=== PATIENT | male | born 1985 | race Caucasian/White ===

== ENCOUNTER 2017-10-13 17:18 | Emergency (ER) | payer BC ==
--- NOTE | 2017-10-13 17:50 | UC ---
Respiratory Complaint HPI - HPI Summary HPI Summary: 32 year old male presents with complains of cough and congestion. - History of Current Complaint Stated Complaint: CHEST COLD Time Seen by Provider: 10/13/17 17:49 Hx Obtained From: Patient Onset/Duration: Sudden Onset Severity Initially: Moderate Severity Currently: Moderate Aggravating Factors: Deep Breaths Alleviating Factors: Nothing - Allergies/Home Medications Allergies/Adverse Reactions: Allergies Allergy/AdvReac Type Severity Reaction Status Date / Time Cefaclor [From Ceclor] Allergy Intermediate Hives Verified 10/13/17 17:51 Cefprozil [From Cefzil] Allergy Intermediate Hives Verified 10/13/17 17:51 Clarithromycin [From Biaxin] AdvReac Intermediate Nausea And Verified 10/13/17 17:51 Vomiting Home Medications: Home Medications Losartan TAB* [Cozaar TAB*] 50 mg DAILY 10/13/17 [History Confirmed 10/13/17] PMH/Surg Hx/FS Hx/Imm Hx - Surgical History Surgical History: Yes Surgery Procedure, Year, and Place: 2 NOSE. L ACL RECONSTRUCTION - Family History Known Family History: Positive: Cardiac Disease, Hypertension, Diabetes - Social History Alcohol Use: Weekly Alcohol Amount: 2 Substance Use Type: None Smoking Status (MU): Never Smoked Tobacco Type: Smokeless Tobacco Amount Used/How Often: OCCASSIONALLY Length of Time of Smoking/Using Tobacco: ON AND OFF FOR LAST 10 YRS. - Immunization History Most Recent Influenza Vaccination: NOT THIS SEASON Most Recent Tetanus Shot: 2007 Review of Systems Constitutional: Negative Skin: Negative Eyes: Negative ENT: Negative Respiratory: Cough Cardiovascular: Negative Gastrointestinal: Negative Genitourinary: Negative Motor: Negative Neurovascular: Negative Musculoskeletal: Negative Neurological: Negative Psychological: Negative All Other Systems Reviewed And Are Negative: Yes Physical Exam Triage Information Reviewed: Yes Vital Signs Reviewed: Yes Eye Exam: Normal ENT Exam: Normal Dental Exam: Normal Neck exam: Normal Neck: Positive: 1 Respiratory: Positive: Rhonchi, Wheezing Cardiovascular Exam: Normal Abdominal Exam: Normal Musculoskeletal Exam: Normal Neurological Exam: Normal Psychological Exam: Normal Skin Exam: Normal Respiratory Course/Dx - Differential Dx/Diagnosis Provider Diagnoses: cough. chest congestion. body aches. chills Discharge - Discharge Plan Condition: Stable Disposition: HOME Prescriptions: Amoxicillin/Clavulanate TAB* [Augmentin TAB 875*] 875 mg PO BID #20 tab Benzonatate CAP* [Tessalon 100 MG CAP*] 100 mg PO TID PRN #30 cap PRN Reason: Cough Guaifenesin-Codeine [Cheratussin AC] 1 teasp PO BEDTIME PRN #120 ml MDD 5 ml PRN Reason: Cough LoraTADine TAB(NF) [Claritin 10 MG TAB(NF)] 10 mg PO DAILY #30 tab Patient Education Materials: Acute Bronchitis (ED) Referrals: Stanton Beth MD [Medical Doctor] -
[2017-10-13 17:55] VITALS: BP 144/76
== END 2017-10-13 18:13 | disposition home or self-care (01) ==
LOC: UCCORT 17:18
DX: R05 Cough (principal); R09.89 Other specified symptoms and signs involving the circulatory and respiratory systems; M79.1 Myalgia; R68.83 Chills (without fever); Z88.1 Allergy status to other antibiotic agents; Z72.0 Tobacco use
CPT/HCPCS: 99212; G0463

== ENCOUNTER 2017-11-30 11:30 | Emergency (ER) | payer BC ==
[2017-11-30 15:00] VITALS: BP 135/62
--- NOTE | 2017-11-30 15:23 | UC ---
Skin Complaint HPI - HPI Summary HPI Summary: small patches of itchy burning rash that has started on the face and neck and now he has small patches over the body in various locations. NO systemic symptoms such as cough, wheezing, fever, dysuria, joint aches. He is outdoors often. Son has moluscum. - History of Current Complaint Chief Complaint: [facility] Time Seen by Provider: 11/30/17 15:07 Stated Complaint: RASH Hx Obtained From: Patient Onset/Duration: Gradual Onset, Lasting Days Skin Exposure Onset/Duration: Days Ago Timing: Constant Onset Severity: Mild Current Severity: Moderate Pain Intensity: 0 Location: Generalized Character: Swelling, Pruritus, Raised Aggravating Factor(s): Touch Alleviating Factor(s): Nothing Associated Signs & Symptoms: Positive: Rash, Tenderness. Negative: Nausea, Vomiting, Numbness, Thirst, Diaphoresis, Weakness, Pallor, Shivering, Fever, Chills, Cough, Wheezing, Chest Pain, Hoarseness, Syncope, Drainage - Allergy/Home Medications Allergies/Adverse Reactions: Allergies Allergy/AdvReac Type Severity Reaction Status Date / Time MS Cefaclor [From Ceclor] Allergy Intermediate Hives Verified 11/30/17 15:00 MS Cefprozil [From Cefzil] Allergy Intermediate Hives Verified 11/30/17 15:00 MS Clarithromycin AdvReac Intermediate Nausea And Verified 11/30/17 15:00 [From Biaxin] Vomiting Review of Systems Skin: Rash All Other Systems Reviewed And Are Negative: Yes PMH/Surg Hx/FS Hx/Imm Hx Previously Healthy: Yes - Surgical History Surgical History: Yes Surgery Procedure, Year, and Place: 2 NOSE. L ACL RECONSTRUCTION - Family History Known Family History: Positive: Cardiac Disease, Hypertension, Diabetes - Social History Occupation: Employed Full-time Lives: With Family Alcohol Use: Occasionally Alcohol Amount: 2 Substance Use Type: None Smoking Status (MU): Never Smoked Tobacco Type: Smokeless Tobacco Amount Used/How Often: OCCASSIONALLY Length of Time of Smoking/Using Tobacco: ON AND OFF FOR LAST 10 YRS. - Immunization History Most Recent Influenza Vaccination: NOT THIS SEASON Most Recent Tetanus Shot: 2007 Physical Exam Triage Information Reviewed: Yes Appearance: Well-Appearing, No Pain Distress, Well-Nourished Vital Signs: Initial Vital Signs Temp 96.8 F 11/30/17 14:58 Pulse 68 11/30/17 14:58 Resp 15 11/30/17 14:58 BP 135/62 11/30/17 14:58 Pulse Ox 100 11/30/17 14:58 Vital Signs Reviewed: Yes Eyes: Positive: Conjunctiva Clear ENT: Positive: Normal ENT inspection, Pharynx normal, Uvula midline. Negative: Nasal congestion, Nasal drainage, Tonsillar swelling, Tonsillar exudate, Hoarse voice Neck: Positive: Supple, Nontender, No Lymphadenopathy Respiratory: Positive: Lungs clear, Normal breath sounds, No respiratory distress, No accessory muscle use. Negative: Respiratory distress, Decreased breath sounds, Accessory muscle use, Crackles, Rhonchi, Stridor, Wheezing Cardiovascular: Positive: RRR, No Murmur Abdomen Description: Positive: Nontender, No Organomegaly, Soft. Negative: Distended, Guarding Musculoskeletal: Positive: Strength Intact, ROM Intact, No Edema Neurological: Positive: Alert, Muscle Tone Normal. Negative: Fatigued Psychological: Positive: Age Appropriate Behavior Skin: Positive: rashes - Small scatterred patchs of pink rash patches without vesicles or streaking. It is on the left post neck, natali temples, penis, Left ASIS. No induration. Course/Dx - Course Course Of Treatment: this is not c/w fungus, scabies, bed bugs. It is most c/w contact dermatitis. If not better in 3-5 days then f/u with derm. - Diagnoses Provider Diagnoses: contact dermatitis. Discharge - Discharge Plan Condition: Good Disposition: HOME Prescriptions: predniSONE TAB* [Deltasone TAB*] 40 mg PO DAILY #3 tab Triamcinolone 0.5% OINT * 1 applic TOPICAL BID #30 tube Patient Education Materials: Acute Rash (ED) Referrals: No Primary Care Phys,NOPCP [Primary Care Provider] - Alessia Rose [Medical Doctor] -
== END 2017-11-30 15:32 | disposition home or self-care (01) ==
LOC: UCCORT 11:30
DX: L25.9 Unspecified contact dermatitis, unspecified cause (principal); Z72.89 Other problems related to lifestyle; F17.220 Nicotine dependence, chewing tobacco, uncomplicated
CPT/HCPCS: 99212; G0463